=== PATIENT | female | born 1960 | race Caucasian/White ===

== ENCOUNTER → 2018-09-27 | Outpatient (CLI) | payer OTHER ==
--- NOTE | 2018-09-27 12:48 | RAD ---
DATE: 09/27/2018 EXAM: MAMMO ANKUSH SCREENING BILATERAL HISTORY: Routine screening COMPARISON: 04/18/2017 This study was interpreted with the benefit of Computerized Aided Detection (CAD). Breast Density: HETERO The breast parenchyma is heterogenously dense, which could reduce sensitivity of mammography. Breast parenchyma level C. FINDINGS: 2-D and 3-D tomosynthesis imaging was performed in CC and MLO projections. No new or enlarging breast densities are seen. No suspicious microcalcifications are evident. IMPRESSION: Stable mammograms without evidence of malignancy. BI-RADS CATEGORY: 2 BENIGN FINDING(S) RECOMMENDED FOLLOW-UP: 12M 12 MONTH FOLLOW-UP PQRS compliance statement: Patient information was entered into a reminder system with a target due date for the next mammogram. Mammography is a sensitive method for finding small breast cancers, but it does not detect them all and is not a substitute for careful clinical examination. A negative mammogram does not negate a clinically suspicious finding and should not result in delay in biopsying a clinically suspicious abnormality. "Our facility is accredited by the [employer] Mammography [employer]."
== END | disposition home or self-care (01) ==
LOC: MAMMO 09:43
PROVIDERS: ATTEND Obstetrics & Gynecology
DX: Z12.31 Encounter for screening mammogram for malignant neoplasm of breast (principal)
CPT/HCPCS: 77063; 77067

== ENCOUNTER 2019-08-26 00:35 | Emergency (ER) | payer OTHER ==
[~2019-08-26] VITALS: Ht 160 cm; Wt 65.0 kg
[2019-08-26] MEDS ORDERED: AMOX1TAB61 PO (01:02)
[2019-08-26] MEDS ORDERED: HYDR-3164 PO (01:02)
--- NOTE | 2019-08-26 01:02 | PHYS DOC ---
General Adult EDM: Chief Complaint: ANIMAL BITE HPI: HPI: Patient is a 59 year old female who presents after being bitten by her dog last night, about 24 hours ago. Patient states that she had gotten up to go to the bathroom and it was dark and she stepped on the dog's tail. She states that the dog was startled and bit her ankle. Patient states that she is now starting to see some redness to the ankle and she has a lot of pain. She rates the pain an 8 out of 10. She denies any other injuries. [] Review of Systems: Review of Systems: Constitutional: Denies fever or chills. [] Respiratory: Denies cough or shortness of breath. [] Cardiovascular: Denies chest pain or edema. [] Musculoskeletal: Positive left ankle pain. [] Integument: Positive dog bite. [] Heart Score: Risk Factors: Risk Factors: DM, Current or recent (<one month) smoker, HTN, HLP, family history of CAD, obesity. Risk Scores: Score 0 - 3: 2.5% MACE over next 6 weeks - Discharge Home Score 4 - 6: 20.3% MACE over next 6 weeks - Admit for Clinical Observation Score 7 - 10: 72.7% MACE over next 6 weeks - Early Invasive Strategies Physical Exam: PE: Constitutional: Well developed, well nourished, no acute distress, non-toxic appearance. [] Cardiovascular: Regular rate and rhythm [] Lungs & Thorax: Bilateral breath sounds clear to auscultation [] Skin: Warm, dry, no erythema, no rash. [] Extremities: Examination of left ankle demonstrates puncture wound around the Achilles region with soft tissue swelling and erythema with warmth. [] EKG: EKG: [] Radiology/Procedures: Radiology/Procedures: [] Course & Med Decision Making: Course & Med Decision Making Pertinent Labs and Imaging studies reviewed. (See chart for details) [] Dragon Disclaimer: Dragon Disclaimer: This electronic medical record was generated, in whole or in part, using a voice recognition dictation system. Departure Departure Impression: Primary Impression: Dog bite Qualified Codes: W54.0XXA - Bitten by dog, initial encounter Additional Impression: Cellulitis Qualified Codes: L03.116 - Cellulitis of left lower limb Disposition: 01 HOME, SELF-CARE Condition: STABLE Referrals: MARYCHUY VIRGEN MD (PCP) Patient Instructions: Animal Bite, Cellulitis Scripts Hydrocodone/Apap 5-325 (NORCO 5-325 TABLET) 1 Each Tablet 1-2 EACH PO PRN Q6HRS PRN for PAIN, #15 as needed for pain Prov: VICKY BEAN Jr. DO 08/26/19 Amoxicillin/Potassium Clav (AUGMENTIN 875-125 TABLET) 1 Each Tablet 1 TAB PO BID for 10 Days, #20 TAB 0 Refills Prov: VICKY BEAN Jr. DO 08/26/19 VICKY BEAN Jr. DO August 26, 2019 01:02
[2019-08-26 01:15] VITALS: BP 130/62
[2019-08-26] MEDS ORDERED: HYDROcodone/APAP 7.5/325MG 1 TAB TABLET PO ONE (01:30)
[2019-08-26] MEDS ORDERED: AMOXICILLIN/K CLAV 875/125MG TABLET. PO ONE (01:30)
== END 2019-08-26 01:50 | disposition home or self-care (01) ==
LOC: ER 00:35
DX: S91.032A Puncture wound without foreign body, left ankle, initial encounter (principal); L03.116 Cellulitis of left lower limb; W54.0XXA Bitten by dog, initial encounter; Y93.89 Activity, other specified; Y92.89 Other specified places as the place of occurrence of the external cause; Y99.8 Other external cause status
CPT/HCPCS: 99283

== ENCOUNTER → 2020-04-23 | Outpatient (CLI) | payer OTHER ==
[~2020-04-23] MED LIST: AMOX1TAB61 PO; ATOR10TA60 PO; BUPR150T27 PO; CALC-584 PO; DOCU-153 PO; ESCITALOPRAM OX20 MG PO; HYDR-2759 PO; HYDR-3164 PO; LEVO88TA51 PO
--- NOTE | 2020-04-23 11:21 | KCIC ---
EXAM: DUAL ENERGY X-RAY ABSORPTIOMETRY (DEXA). HISTORY: Postmenopausal screening. FINDINGS: The lowest measured T-score is -1.4 in the left hip, based on a bone mineral density of 0.7 69 g/cm^2. Refer to the worksheets for full detail. No comparison examinations are available. IMPRESSION: 1. Low bone mass. Bone mineral density yields a T-score between -1.0 and -2.5. Fracture risk is incre ased. 2. FRAX report: Not available. METHODOLOGY: Dual energy x-ray absorptiometry was performed to measure bone mineral density. The foll owing analysis is based on the 2019 Official Positions of the International Society for Clinical Dens itometry: Measurements of the hips and the average of L1-L4 are preferred. When the spine and/or hip cannot be feasibly measured or interpreted, or in the setting of hyperparathyroidism, distal radial bone minera l density may be measured. The lumbar spine T-score is based on the average bone mineral density of L1-L4. In the setting of art ifact or anatomic abnormality, some lumbar levels may be excluded, and the remaining levels used for calculation. A single lumbar level is not used for diagnosis, and if only a single level is available for assessment, another anatomic site will be used to assign a diagnosis. The hip T-score is based on the bone mineral density measurement of the femoral neck or total proxima l femur of either side, whichever is lowest. Bilateral mean values are not used for diagnosis. The forearm T-score is derived from 33% of the distal radius of the nondominant forearm. Electronically signed by: Bria Kumari MD (04/23/2020 11:19 AM) [id number]
--- NOTE | 2020-04-23 16:01 | KCIC ---
Bilateral digital screening mammograms and tomosynthesis Reason for examination: Routine screening.Family history of breast cancer the patient's mother. Comparison is made to previous study dated September 27, 2018 and priors Routine CC and MLO digital views obtained. Interpretation was made with the benefit of CAD. The skin and nipples show no abnormalities. No abnormal axillary lymph nodes are seen. The breast par enchyma is heterogeneously dense. (Breast density: Category C.) There are no suspicious masses, suspi cious calcifications or architectural distortion. Mild regional glandular asymmetries of the left upp er outer breasts are stable, benign. Impression: Negative mammogram. Recommend routine screening. ?Your patient's mammogram demonstrates that she has dense breast tissue (breast density category C or D), which could hide abnormalities, and if she has other risk factors for breast cancer that have be en identified, she might benefit from supplemental screening tests that may be suggested by you as he r ordering physician. Dense breast tissue, in and of itself, is a relatively common condition. Theref ore, this information is not provided to cause undue concern, but rather to raise your awareness and to promote discussion with your patient regarding the presence of other risk factors, in addition to dense breast tissue. Your patient's mammography results will be sent to her. BI-RAD Category 1: Negative. "Our facility is accredited by the [employer] Mammography Program." This patient's information has been entered into a reminder system for the patient to be notified wit h the results of her examination and a target date for the next mammogram. Electronically signed by: Fernando Hernández MD (04/23/2020 3:58 PM) [id number]
== END ==
LOC: KCIC MAMMO 10:19
PROVIDERS: ATTEND Family Medicine
DX: Z12.31 Encounter for screening mammogram for malignant neoplasm of breast (principal); M85.88 Other specified disorders of bone density and structure, other site
CPT/HCPCS: 77063; 77067; 77080

== ENCOUNTER 2020-06-03 05:51 | Inpatient (IN) | payer OTHER ==
[~2020-06-03] VITALS: Ht 160 cm; Wt 69.4 kg
[~2020-06-03 05:51] MED LIST changes: -ATOR10TA60 PO; -BUPR150T27 PO; -CALC-584 PO; -DOCU-153 PO; -ESCITALOPRAM OX20 MG PO; -HYDR-2759 PO; -LEVO88TA51 PO
[2020-06-03 06:43] LABS: BASO # 0.1 x10^3/uL (0.0-0.2); BASO % 1 % (0-3); EOS # 0.1 x10^3/uL (0.0-0.7); EOS % 1 % (0-3); HEMATOCRIT 41.1 % (36.0-47.0); HEMOGLOBIN 13.6 g/dL (12.0-15.5); LYMPH # 1.8 x10^3/uL (1.0-4.8); LYMPH % 16 % (24-48); MEAN CORPUSCULAR HEMOGLOBIN 30 pg (25-35); MEAN CORPUSCULAR HGB CONC 33 g/dL (31-37); MEAN CORPUSCULAR VOLUME 91 fL (79-100); MONO # 0.6 x10^3/uL (0.0-1.1); MONO % 6 % (0-9); NEUT # 8.1 x10^3/uL (1.8-7.7); NEUT % 76 % (31-73); PLATELET COUNT 222 x10^3/uL (140-400); RED BLOOD COUNT 4.54 x10^6/uL (3.50-5.40); RED CELL DISTRIBUTION WIDTH 13.2 % (11.5-14.5); WHITE BLOOD COUNT 10.7 x10^3/uL (4.0-11.0)
--- NOTE | 2020-06-03 06:43 | PHYS DOC ---
Past Medical History Past Medical History: Depression, High Cholesterol, Hypothyroid Past Surgical History: Other Additional Past Surgical Histo: FOOT INFECTION SURG. PARASYMPATHOCTOMY, RINOPLASTY Smoking Status: Never Smoker Alcohol Use: Occasionally General Adult EDM: Chief Complaint: ABDOMINAL PAIN HPI: HPI: Patient is a 60 year old female who presented to ER due to epigastric abdominal pain, right upper quad abdominal pain started several hours ago. Patient denies any cough or fever, no chest pain, no trouble breathing. Patient denies any diarrhea, no vomiting. Patient denies history of acid reflux, denies a history of gallbladder problem. Patient denies history of pancreatitis. Review of Systems: Review of Systems: Constitutional: Denies fever or chills. [] Eyes: Denies change in visual acuity. [] HENT: Denies nasal congestion or sore throat. [] Respiratory: Denies cough or shortness of breath. [] Cardiovascular: Denies chest pain or edema. [] GI: Positive for abdominal pain, no nausea vomiting, no diarrhea. : Denies dysuria. [] Musculoskeletal: Denies back pain or joint pain. [] Integument: Denies rash. [] Neurologic: Denies headache, focal weakness or sensory changes. [] Endocrine: Denies polyuria or polydipsia. [] Lymphatic: Denies swollen glands. [] Psychiatric: Denies depression or anxiety. [] Heart Score: Risk Factors: Risk Factors: DM, Current or recent (<one month) smoker, HTN, HLP, family history of CAD, obesity. Risk Scores: Score 0 - 3: 2.5% MACE over next 6 weeks - Discharge Home Score 4 - 6: 20.3% MACE over next 6 weeks - Admit for Clinical Observation Score 7 - 10: 72.7% MACE over next 6 weeks - Early Invasive Strategies Current Medications: Current Medications Medications (Trade) Dose Ordered Sig/Dalila Start Time Stop Time Status Last Admin Dose Admin Famotidine (Pepcid Vial) 20 mg 1X ONCE 06/03/20 07:00 06/03/20 07:01 Ondansetron HCl (Zofran) 4 mg 1X ONCE 06/03/20 07:00 06/03/20 07:01 Allergies: Allergies: Allergies Coded Allergies Type Severity Reaction Last Updated Verified No Known Drug Allergies 08/26/19 No Physical Exam: PE: Constitutional: Well developed, well nourished, no acute distress, non-toxic appearance. [] HENT: Normocephalic, atraumatic, bilateral external ears normal, oropharynx moist, no oral exudates, nose normal. [] Eyes: PERRLA, EOMI, conjunctiva normal, no discharge. [] Neck: Normal range of motion, no tenderness, supple, no stridor. [] Cardiovascular:Heart rate regular rhythm, no murmur [] Lungs & Thorax: Bilateral breath sounds clear to auscultation [] Abdomen: Bowel sounds normal, soft, There is tenderness to palpation in RUQ and epigastric area, no masses, no pulsatile masses. [] Skin: Warm, dry, no erythema, no rash. [] Back: No tenderness, no CVA tenderness. [] Extremities: No tenderness, no cyanosis, no clubbing, ROM intact, no edema. [] Neurologic: Alert and oriented X 3, normal motor function, normal sensory function, no focal deficits noted. [] Psychologic: Affect normal, judgement normal, mood normal. [] Current Patient Data: Labs: Laboratory Tests Test 06/03/20 06:27 06/03/20 08:28 White Blood Count 10.7 x10^3/uL Red Blood Count 4.54 x10^6/uL Hemoglobin 13.6 g/dL Hematocrit 41.1 % Mean Corpuscular Volume 91 fL Mean Corpuscular Hemoglobin 30 pg Mean Corpuscular Hemoglobin Concent 33 g/dL Red Cell Distribution Width 13.2 % Platelet Count 222 x10^3/uL Neutrophils (%) (Auto) 76 % Lymphocytes (%) (Auto) 16 % Monocytes (%) (Auto) 6 % Eosinophils (%) (Auto) 1 % Basophils (%) (Auto) 1 % Neutrophils # (Auto) 8.1 x10^3/uL Lymphocytes # (Auto) 1.8 x10^3/uL Monocytes # (Auto) 0.6 x10^3/uL Eosinophils # (Auto) 0.1 x10^3/uL Basophils # (Auto) 0.1 x10^3/uL Sodium Level 142 mmol/L Potassium Level 3.9 mmol/L Chloride Level 103 mmol/L Carbon Dioxide Level 28 mmol/L Anion Gap 11 Blood Urea Nitrogen 11 mg/dL Creatinine 1.2 mg/dL Estimated GFR (Cockcroft-Gault) 45.5 BUN/Creatinine Ratio 9 Glucose Level 102 mg/dL Calcium Level 9.3 mg/dL Total Bilirubin 0.5 mg/dL Aspartate Amino Transf (AST/SGOT) 70 U/L Alanine Aminotransferase (ALT/SGPT) 69 U/L Alkaline Phosphatase 107 U/L Troponin I Quantitative < 0.017 ng/mL Total Protein 6.6 g/dL Albumin 3.8 g/dL Albumin/Globulin Ratio 1.4 Lipase 213 U/L SARS-CoV-2 Antigen (Rapid) Negative Current Medications Medications (Trade) Dose Ordered Sig/Dalila Route PRN Reason Start Time Stop Time Status Last Admin Dose Admin Ondansetron HCl (Zofran) 4 mg 1X ONCE IVP 06/03/20 07:00 06/03/20 07:01 DC 06/03/20 06:40 Famotidine (Pepcid Vial) 20 mg 1X ONCE IVP 06/03/20 07:00 06/03/20 07:01 DC 06/03/20 06:41 Multi-Ingredient Mouthwash/Gargle (Gi Cocktail) 20 ml 1X ONCE SWSW 06/03/20 07:15 06/03/20 07:16 DC 06/03/20 07:16 Fentanyl Citrate (Fentanyl 2ml Vial) 50 mcg 1X ONCE IVP 06/03/20 08:00 06/03/20 08:01 DC 06/03/20 08:08 Ondansetron HCl (Zofran) 4 mg PRN Q8HRS PRN IV NAUSEA/VOMITING 06/03/20 09:15 06/04/20 09:14 Fentanyl Citrate (Fentanyl 2ml Vial) 50 mcg PRN Q1HR PRN IV PAIN 06/03/20 09:15 06/04/20 09:14 Sodium Chloride 1,000 ml @ 75 mls/hr [id number] IV 06/03/20 09:15 06/04/20 09:14 Piperacillin Sod/ Tazobactam Sod 3.375 gm/Sodium Chloride 50 ml @ 100 mls/hr Q6HRS IV 06/03/20 10:00 Vital Signs: Vital Signs Date Time Temp Pulse Resp B/P (MAP) Pulse Ox O2 Delivery O2 Flow Rate FiO2 06/03/20 06:12 98.4 107 20 162/74 (103) 97 Room Air 98.4 EKG: EKG: [] Radiology/Procedures: Radiology/Procedures: [facility] [address] [place] [address] IMAGING REPORT Signed PATIENT: MCKAYLA DE DIOS ACCOUNT: [id number] : 1960 LOCATION: ER AGE: 60 SEX: F EXAM STATUS: REG ER ORD. PHYSICIAN: LASHONDA PINA DO REASON: RUQ abdominal pain PROCEDURE: ABDOMEN LTD US ABDOMEN LTD INDICATION: RUQ abdominal pain COMPARISON: None. TECHNIQUE: Limited transverse and longitudinal grayscale images of the right upper quadrant with color and pulsed doppler utilized as appropriate. FINDINGS: The liver demonstrates normal echogenicity without focal lesions. The liver measures 15.2 cm. The portal vein is patent with normal antegrade flow. Cholelithiasis. Gallbladder wall thickening measuring up to 6 mm. No intrahepatic or extrahepatic biliary dilatation. The common bile duct measures 0.5 cm. The visualized portions of the pancreas demonstrate normal echogenicity without focal lesions. The right kidney has normal echogenicity and measures 9.9 cm. No hydronephrosis, shadowing stones or suspicious masses seen. No ascites or fluid collections. The aorta and IVC are normal diameter where visualized. IMPRESSION: Cholelithiasis with gallbladder wall thickening, which could relate to acute or chronic cholecystitis. Correlate with laboratory values. Electronically signed by: Connor Arellano MD (06/03/2020 7:41 AM) [id number] DICTATED and SIGNED BY: CONNOR ARELLANO MD DATE: 06/03/20 [id number] 0 Course & Med Decision Making: Course & Med Decision Making Pertinent Labs and Imaging studies reviewed. (See chart for details) Patient is a 60-year-old female who was found. Gallstone, gallbladder wall thickening consistent with cholecystitis, discussed with the general surgeon on- call Dr. Kellogg, who indicated he will see the patient today to see when they will operate on her. Discussed with Dr. Boyer, hospitalist service who agreed to admit the patient Dragnigel Disclaimer: Dragon Disclaimer: This electronic medical record was generated, in whole or in part, using a voice recognition dictation system. Departure Departure Impression: Primary Impression: Acute cholecystitis due to biliary calculus Disposition: 09 ADMITTED INPT THIS HOSP Admitting Physician: DIEGO (Dr. Boyer) Referrals: MARYCHUY VIRGEN MD (PCP) LASHONDA PINA DO Jun 03, 2020 06:43
[2020-06-03] MEDS ORDERED: FAMOTIDINE 20 MG/2 ML VIAL IVP ONE (07:00)
[2020-06-03] MEDS ORDERED: ONDANSETRON PF 4 MG/2 ML VIAL. IVP ONE (07:00)
[2020-06-03 07:03] LABS: ALBUMIN 3.8 g/dL (3.4-5.0); ALBUMIN/GLOBULIN RATIO 1.4 (1.0-1.7); CALCIUM 9.3 mg/dL (8.5-10.1); CREATININE 1.2 mg/dL (0.6-1.0); GFR 45.5; POTASSIUM 3.9 mmol/L (3.5-5.1); TOTAL BILIRUBIN 0.5 mg/dL (0.2-1.0); TOTAL PROTEIN 6.6 g/dL (6.4-8.2)
[2020-06-03] MEDS ORDERED: LIDO:MAALOX 1:1 20 ML SINGLE DOSE. SWSW ONE (07:15)
--- NOTE | 2020-06-03 07:44 | RAD ---
US ABDOMEN LTD INDICATION: RUQ abdominal pain COMPARISON: None. TECHNIQUE: Limited transverse and longitudinal grayscale images of the right upper quadrant with colo r and pulsed doppler utilized as appropriate. FINDINGS: The liver demonstrates normal echogenicity without focal lesions. The liver measures 15.2 cm. The por martienz vein is patent with normal antegrade flow. Cholelithiasis. Gallbladder wall thickening measuring up to 6 mm. No intrahepatic or extrahepatic robel iary dilatation. The common bile duct measures 0.5 cm. The visualized portions of the pancreas demonstrate normal echogenicity without focal lesions. The right kidney has normal echogenicity and measures 9.9 cm. No hydronephrosis, shadowing stones or suspicious masses seen. No ascites or fluid collections. The aorta and IVC are normal diameter where visualized. IMPRESSION: Cholelithiasis with gallbladder wall thickening, which could relate to acute or chronic cholecystitis . Correlate with laboratory values. Electronically signed by: Srini Arellano MD (06/03/2020 7:41 AM) [id number]
[2020-06-03] MEDS ORDERED: fentaNYL PF VIAL 100 MCG/2 ML VIAL IVP ONE (08:00)
--- NOTE | 2020-06-03 08:59 | EKG ---
[facility] [address] [place] [address] Test Date: 2020-06-03 Test Time: 06:48:58 Pat Name: MCKAYLA DE DIOS Department: Room: Gender: F Guest Service Supervisor: : 1960 Requested By: LASHONDA PINA Order Number: [id number] Reading MD: Measurements Intervals [place] Rate: 63 P: 51 MN: 142 QRS: 45 QRSD: 86 T: 33 QT: 436 QTc: 449 Interpretive Statements SINUS RHYTHM NO SPECIFIC ECG ABNORMALITIES RI6.02 No previous ECG available for comparison
[2020-06-03] MEDS ORDERED: ONDANSETRON PF 4 MG/2 ML VIAL. IV PRN (09:15)
[2020-06-03] MEDS ORDERED: fentaNYL PF VIAL 100 MCG/2 ML VIAL IV PRN (09:15)
[2020-06-03] MEDS: PIPERACILLIN/TAZOBACTAM 3.375 GM in IV NORMAL SALINE 50ML 50 ML IV SCH ×2 (10:00→17:14)
[2020-06-03] MEDS: IV NORMAL SALINE 1000ML BAG 1,000 ML IV SCH (10:01)
[2020-06-03] MEDS ORDERED: IOHEXOL 300 MG/ML 100ML VIAL. IV ONE (10:30)
[2020-06-03] MEDS ORDERED: IOHEXOL 240 MG/ML 50ML VIAL. PO ONE (10:30)
[2020-06-03] MEDS ORDERED: CONTRAST GIVEN. MC PRN (10:30)
--- NOTE | 2020-06-03 11:48 | RAD ---
EXAM: CT Abdomen and Pelvis with IV contrast CLINICAL HISTORY: Abdominal pain, right upper quadrant COMPARISON: none TECHNIQUE: Helical CT of the abdomen and pelvis was performed following the administration of intrave nous contrast. Axial, coronal and sagittal reformatted images were generated. PQRS compliance statement - One or more of the following individualized dose reduction techniques wer e utilized for this study: 1. Automated exposure control 2. Adjustment of the mA and/or kV according to patient size 3. Use of iterative reconstruction technique FINDINGS: Lower Chest: Emphysematous changes are seen. Linear opacities are lobes likely scarring/atelectasis. Abdomen and Pelvis: No focal liver lesion. Called gallstones are seen within the gallbladder with wall thickening and tra ce pericholecystic fluid. No biliary ductal dilatation. Pancreas, spleen, adrenal glands are unremark able. Symmetric nephrograms. No focal renal lesion. No hydronephrosis. Bladder is unremarkable. Appendix is normal. Moderate to large volume colonic stool content is seen. No small or large bowel d ilatation. No bowel obstruction. No abdominal or pelvic ascites. No abdominal or pelvic lymphadenopathy. Trace fat-containing periumbi lical hernia. Bones: No aggressive osseous lesion is seen. Degenerative changes of spine are noted. IMPRESSION: 1. Cholelithiasis with gallbladder wall thickening and trace pericholecystic fluid is suspicious for acute cholecystitis. 2. Moderate to large right colonic stool content is seen. Appendix is normal. 3. Trace fat-containing periumbilical hernia. Electronically signed by: Adonay Couch MD (06/03/2020 11:46 AM) [id number]
[2020-06-03 12:23] VITALS: BP 122/53
[2020-06-03 12:26] LABS: BILIRUBIN,URINE NEGATIVE (NEG); CLARITY,URINE CLEAR; COLOR,URINE YELLOW; NITRITE,URINE NEGATIVE (NEG); PH,URINE 6.5 (<5.0-8.0); PROTEIN,URINE NEGATIVE (NEG-TRACE)
[2020-06-03 12:59] LABS: BACTERIA,URINE 0 /HPF (0-FEW); HYALINE CASTS, URINE OCCASIONAL /HPF; WBC,URINE OCC /HPF (0-4)
[2020-06-03 15:00] VITALS: BP 113/56
[2020-06-03] MEDS ORDERED: MORPHINE SULFATE 4 MG/ML VIAL. IV PRN (15:00)
[2020-06-03] MEDS ORDERED: MAGNESIUM CITRATE 296 ML SOLUTION. PO ONE (17:00)
--- NOTE | 2020-06-03 17:07 | PDOC2 ---
CONSULT Date of Consult Date of Consult DATE: 06/03/20 TIME: 17:02 Reason for Consult Reason for Consult: Calculous cholecystitis Referring Physician Referring Physician: Dr. Boyer Identification/Chief Complaint Chief Complaint RUQ pain Source Source: Chart review, Patient History of Present Illness Reason for Visit: 60 yo F was seen in ER. Presents with several hour history of RUQ pain. No previous episodes. No N/V. Pt does report feeling better with pain meds. Past Medical History Past Medical History hx of hyperhydrosis, s/p sympathectomy Cardiovascular: HTN Psych: Depression Past Surgical History Past Surgical History: Other (as above, foot surgery, nasal surgery) Family History Family History: No Significant Social History No Current Problem List Problem List Problems Medical Problems: (1) Acute cholecystitis due to biliary calculus Status: Acute Current Medications Current Medications Current Medications Ondansetron HCl (Zofran) 4 mg 1X ONCE IVP Last administered on 06/03/20at 06:40; Start 06/03/20 at 07:00; Stop 06/03/20 at 07:01; Status DC Famotidine (Pepcid Vial) 20 mg 1X ONCE IVP Last administered on 06/03/20at 06:41; Start 06/03/20 at 07:00; Stop 06/03/20 at 07:01; Status DC Multi-Ingredient Mouthwash/Gargle (Gi Cocktail) 20 ml 1X ONCE SWSW Last administered on 06/03/20at 07:16; Start 06/03/20 at 07:15; Stop 06/03/20 at 07:16; Status DC Fentanyl Citrate (Fentanyl 2ml Vial) 50 mcg 1X ONCE IVP Last administered on 06/03/20at 08:08; Start 06/03/20 at 08:00; Stop 06/03/20 at 08:01; Status DC Ondansetron HCl (Zofran) 4 mg PRN Q8HRS PRN IV NAUSEA/VOMITING; Start 06/03/20 at 09:15; Stop 06/04/20 at 09:14 Fentanyl Citrate (Fentanyl 2ml Vial) 50 mcg PRN Q1HR PRN IV PAIN Last administered on 06/03/20at 09:56; Start 06/03/20 at 09:15; Stop 06/04/20 at 09:14 Sodium Chloride 1,000 ml @ 75 mls/hr [id number] IV Last administered on 06/03/20at 10:01; Start 06/03/20 at 09:15; Stop 06/04/20 at 09:14 Piperacillin Sod/ Tazobactam Sod 3.375 gm/Sodium Chloride 50 ml @ 100 mls/hr Q6HRS IV Last administered on 06/03/20at 10:00; Start 06/03/20 at 10:00 Iohexol (Omnipaque 240 Mg/ml) 50 ml 1X ONCE PO Last administered on 06/03/20at 10:30; Start 06/03/20 at 10:30; Stop 06/03/20 at 10:31; Status DC Iohexol (Omnipaque 300 Mg/ml) 60 ml 1X ONCE IV Last administered on 06/03/20at 11:22; Start 06/03/20 at 10:30; Stop 06/03/20 at 10:31; Status DC Info (CONTRAST GIVEN -- Rx MONITORING) 1 each PRN DAILY PRN MC SEE COMMENTS; Start 06/03/20 at 10:30; Stop 06/05/20 at 10:29 Morphine Sulfate (Morphine Sulfate) 4 mg PRN Q2HR PRN IV PAIN; Start 06/03/20 at 15:00 Active Scripts Active [place] 5-325 Tablet (Acetaminophen/Hydrocodone Bitart) 1 Each Tablet 1-2 Each PO PRN Q6HRS PRN as needed for pain Augmentin 875-125 Tablet (Amoxicillin/Potassium Clav) 1 Each Tablet 1 Tab PO BID 10 Days Allergies Allergies: Coded Allergies: No Known Drug Allergies (Unverified , 08/26/19) ROS Gastrointestinal: Yes Abdominal Pain Physical Exam General: Alert, Oriented X3, Cooperative, No acute distress HEENT: Atraumatic Lungs: Normal air movement Abdomen: Soft, Other (mild TTP RUQ) Extremities: No clubbing, No cyanosis Skin: No rashes, No breakdown Neuro: Normal speech, Sensation intact Psych/Mental Status: Mental status NL, Mood NL Vitals VITALS Vital Signs Date Time Temp Pulse Resp B/P (MAP) Pulse Ox O2 Delivery O2 Flow Rate FiO2 06/03/20 15:00 97.9 77 18 113/56 (75) 99 Room Air 97.9 Labs Labs Laboratory Tests Test 06/03/20 06:27 06/03/20 08:28 06/03/20 12:07 White Blood Count 10.7 x10^3/uL (4.0-11.0) Red Blood Count 4.54 x10^6/uL (3.50-5.40) Hemoglobin 13.6 g/dL (12.0-15.5) Hematocrit 41.1 % (36.0-47.0) Mean Corpuscular Volume 91 fL (79-100) Mean Corpuscular Hemoglobin 30 pg (25-35) Mean Corpuscular Hemoglobin Concent 33 g/dL (31-37) Red Cell Distribution Width 13.2 % (11.5-14.5) Platelet Count 222 x10^3/uL (140-400) Neutrophils (%) (Auto) 76 % (31-73) Lymphocytes (%) (Auto) 16 % (24-48) Monocytes (%) (Auto) 6 % (0-9) Eosinophils (%) (Auto) 1 % (0-3) Basophils (%) (Auto) 1 % (0-3) Neutrophils # (Auto) 8.1 x10^3/uL (1.8-7.7) Lymphocytes # (Auto) 1.8 x10^3/uL (1.0-4.8) Monocytes # (Auto) 0.6 x10^3/uL (0.0-1.1) Eosinophils # (Auto) 0.1 x10^3/uL (0.0-0.7) Basophils # (Auto) 0.1 x10^3/uL (0.0-0.2) Sodium Level 142 mmol/L (136-145) Potassium Level 3.9 mmol/L (3.5-5.1) Chloride Level 103 mmol/L (98-107) Carbon Dioxide Level 28 mmol/L (21-32) Anion Gap 11 (6-14) Blood Urea Nitrogen 11 mg/dL (7-20) Creatinine 1.2 mg/dL (0.6-1.0) Estimated GFR (Cockcroft-Gault) 45.5 BUN/Creatinine Ratio 9 (6-20) Glucose Level 102 mg/dL (70-99) Calcium Level 9.3 mg/dL (8.5-10.1) Total Bilirubin 0.5 mg/dL (0.2-1.0) Aspartate Amino Transf (AST/SGOT) 70 U/L (15-37) Alanine Aminotransferase (ALT/SGPT) 69 U/L (14-59) Alkaline Phosphatase 107 U/L (46-116) Troponin I Quantitative < 0.017 ng/mL (0.000-0.055) Total Protein 6.6 g/dL (6.4-8.2) Albumin 3.8 g/dL (3.4-5.0) Albumin/Globulin Ratio 1.4 (1.0-1.7) Lipase 213 U/L (73-393) SARS-CoV-2 Antigen (Rapid) Negative (NEGATIVE) Urine Collection Type Unknown Urine Color Yellow Urine Clarity Clear Urine pH 6.5 (<5.0-8.0) Urine Specific [place] >=1.030 (1.000-1.030) Urine Protein Negative mg/dL (NEG-TRACE) Urine Glucose (UA) Negative mg/dL (NEG) Urine Ketones (Stick) Negative mg/dL (NEG) Urine Blood Negative (NEG) Urine Nitrite Negative (NEG) Urine Bilirubin Negative (NEG) Urine Urobilinogen Dipstick 1.0 mg/dL (0.2 mg/dL) Urine Leukocyte Esterase Negative (NEG) Urine RBC 1-2 /HPF (0-2) Urine WBC Occ /HPF (0-4) Urine Squamous Epithelial Cells Few /LPF Urine Bacteria 0 /HPF (0-FEW) Urine Hyaline Casts Occasional /HPF Urine Mucus Mod /LPF Laboratory Tests Test 06/03/20 06:27 06/03/20 08:28 06/03/20 12:07 White Blood Count 10.7 x10^3/uL (4.0-11.0) Red Blood Count 4.54 x10^6/uL (3.50-5.40) Hemoglobin 13.6 g/dL (12.0-15.5) Hematocrit 41.1 % (36.0-47.0) Mean Corpuscular Volume 91 fL (79-100) Mean Corpuscular Hemoglobin 30 pg (25-35) Mean Corpuscular Hemoglobin Concent 33 g/dL (31-37) Red Cell Distribution Width 13.2 % (11.5-14.5) Platelet Count 222 x10^3/uL (140-400) Neutrophils (%) (Auto) 76 % (31-73) Lymphocytes (%) (Auto) 16 % (24-48) Monocytes (%) (Auto) 6 % (0-9) Eosinophils (%) (Auto) 1 % (0-3) Basophils (%) (Auto) 1 % (0-3) Neutrophils # (Auto) 8.1 x10^3/uL (1.8-7.7) Lymphocytes # (Auto) 1.8 x10^3/uL (1.0-4.8) Monocytes # (Auto) 0.6 x10^3/uL (0.0-1.1) Eosinophils # (Auto) 0.1 x10^3/uL (0.0-0.7) Basophils # (Auto) 0.1 x10^3/uL (0.0-0.2) Sodium Level 142 mmol/L (136-145) Potassium Level 3.9 mmol/L (3.5-5.1) Chloride Level 103 mmol/L (98-107) Carbon Dioxide Level 28 mmol/L (21-32) Anion Gap 11 (6-14) Blood Urea Nitrogen 11 mg/dL (7-20) Creatinine 1.2 mg/dL (0.6-1.0) Estimated GFR (Cockcroft-Gault) 45.5 BUN/Creatinine Ratio 9 (6-20) Glucose Level 102 mg/dL (70-99) Calcium Level 9.3 mg/dL (8.5-10.1) Total Bilirubin 0.5 mg/dL (0.2-1.0) Aspartate Amino Transf (AST/SGOT) 70 U/L (15-37) Alanine Aminotransferase (ALT/SGPT) 69 U/L (14-59) Alkaline Phosphatase 107 U/L (46-116) Troponin I Quantitative < 0.017 ng/mL (0.000-0.055) Total Protein 6.6 g/dL (6.4-8.2) Albumin 3.8 g/dL (3.4-5.0) Albumin/Globulin Ratio 1.4 (1.0-1.7) Lipase 213 U/L (73-393) SARS-CoV-2 Antigen (Rapid) Negative (NEGATIVE) Urine Collection Type Unknown Urine Color Yellow Urine Clarity Clear Urine pH 6.5 (<5.0-8.0) Urine Specific [place] >=1.030 (1.000-1.030) Urine Protein Negative mg/dL (NEG-TRACE) Urine Glucose (UA) Negative mg/dL (NEG) Urine Ketones (Stick) Negative mg/dL (NEG) Urine Blood Negative (NEG) Urine Nitrite Negative (NEG) Urine Bilirubin Negative (NEG) Urine Urobilinogen Dipstick 1.0 mg/dL (0.2 mg/dL) Urine Leukocyte Esterase Negative (NEG) Urine RBC 1-2 /HPF (0-2) Urine WBC Occ /HPF (0-4) Urine Squamous Epithelial Cells Few /LPF Urine Bacteria 0 /HPF (0-FEW) Urine Hyaline Casts Occasional /HPF Urine Mucus Mod /LPF Images Images CT with some right sided constipation US with calculous cholecystitis Assessment/Plan Assessment/Plan Calculous cholecystitis will gently prep today, given constipation will plan laparoscopic versus open cholecystectomy with cholangiogram tomorrow afternoon. R/R/B/A d/w pt. Thanks for consult! ELIZABETH JUSTIN MD Jun 03, 2020 17:07
--- NOTE | 2020-06-03 17:18 | PDOC1 ---
History and Physical Date of Admission Date of Admission DATE: 06/03/20 TIME: 17:14 Source Source: Chart review, Patient History of Present Illness History of Present Illness Ms. Barton, is a 60 year old female admti with new abdominal pain. TOday, she had an onset of epigastric abdominal pain, right upper quad abdominal pain for hours. better with pain meds given in the ER. . Patient denies any cough or fever, no chest pain, no trouble breathing. Patient denies any diarrhea, no vomiting. Patient denies history of acid reflux, denies a history of gallbladder problem. her daughter is a hospitalist in the [facility], Past Medical History Cardiovascular: HTN Psych: Depression Past Surgical History Past Surgical History: Other (as above, foot surgery, nasal surgery) Family History Family History: No Significant Social History Smoke: No ALCOHOL: occassional Current Problem List Problem List Problems Medical Problems: (1) Acute cholecystitis due to biliary calculus Status: Acute Current Medications Current Medications Current Medications Ondansetron HCl (Zofran) 4 mg 1X ONCE IVP Last administered on 06/03/20at 06:40; Start 06/03/20 at 07:00; Stop 06/03/20 at 07:01; Status DC Famotidine (Pepcid Vial) 20 mg 1X ONCE IVP Last administered on 06/03/20at 06:41; Start 06/03/20 at 07:00; Stop 06/03/20 at 07:01; Status DC Multi-Ingredient Mouthwash/Gargle (Gi Cocktail) 20 ml 1X ONCE SWSW Last administered on 06/03/20at 07:16; Start 06/03/20 at 07:15; Stop 06/03/20 at 07:16; Status DC Fentanyl Citrate (Fentanyl 2ml Vial) 50 mcg 1X ONCE IVP Last administered on 06/03/20at 08:08; Start 06/03/20 at 08:00; Stop 06/03/20 at 08:01; Status DC Ondansetron HCl (Zofran) 4 mg PRN Q8HRS PRN IV NAUSEA/VOMITING; Start 06/03/20 at 09:15; Stop 06/04/20 at 09:14 Fentanyl Citrate (Fentanyl 2ml Vial) 50 mcg PRN Q1HR PRN IV PAIN Last administered on 06/03/20at 09:56; Start 06/03/20 at 09:15; Stop 06/04/20 at 09:14 Sodium Chloride 1,000 ml @ 75 mls/hr [id number] IV Last administered on 06/03/20at 10:01; Start 06/03/20 at 09:15; Stop 06/04/20 at 09:14 Piperacillin Sod/ Tazobactam Sod 3.375 gm/Sodium Chloride 50 ml @ 100 mls/hr Q6HRS IV Last administered on 06/03/20at 10:00; Start 06/03/20 at 10:00 Iohexol (Omnipaque 240 Mg/ml) 50 ml 1X ONCE PO Last administered on 06/03/20at 10:30; Start 06/03/20 at 10:30; Stop 06/03/20 at 10:31; Status DC Iohexol (Omnipaque 300 Mg/ml) 60 ml 1X ONCE IV Last administered on 06/03/20at 11:22; Start 06/03/20 at 10:30; Stop 06/03/20 at 10:31; Status DC Info (CONTRAST GIVEN -- Rx MONITORING) 1 each PRN DAILY PRN MC SEE COMMENTS; Start 06/03/20 at 10:30; Stop 06/05/20 at 10:29 Morphine Sulfate (Morphine Sulfate) 4 mg PRN Q2HR PRN IV PAIN; Start 06/03/20 at 15:00 Magnesium Citrate (Citroma) 296 ml 1X ONCE PO ; Start 06/03/20 at 17:00; Stop 06/03/20 at 17:04; Status DC Active Scripts Active [place] 5-325 Tablet (Acetaminophen/Hydrocodone Bitart) 1 Each Tablet 1-2 Each PO PRN Q6HRS PRN as needed for pain Augmentin 875-125 Tablet (Amoxicillin/Potassium Clav) 1 Each Tablet 1 Tab PO BID 10 Days Allergies Allergies: Coded Allergies: No Known Drug Allergies (Unverified , 08/26/19) ROS General: No: Chills, Night Sweats, Fatigue, Malaise, Appetite, Other PSYCHOLOGICAL ROS: No: Anxiety, Behavioral Disorder, Concentration difficultie, Decreased libido, Depression, Disorientation, Hallucinations, Hostility, Irrit ablity, Memory difficulties, Mood Swings, Obsessive thoughts, Physical abuse, Sexual abuse, Sleep disturbances, Suicidal ideation, Other Eyes: No Blurry vision, No Decreased vision, No Double vision, No Dry eyes, No Excessive tearing, No Eye Pain, No Itchy Eyes, No Loss of vision, No Photophobia, No Scotomata, No Uses contacts, No Uses glasses, No Other HEENT: No: Heacaches, Visual Changes, Hearing change, Nasal congestion, Nasal discharge, Oral lesions, Sinus pain, Sore Throat, Epistaxis, Sneezing, Snoring, Tinnitus, Vertigo, Vocal changes, Other Respiratory: No: Cough, Hemoptysis, Orthopnea, Pleuritic Pain, Shortness of breath, SOB with excertion, Sputum Changes, Stridor, Tachypnea, Wheezing, Other Cardiovascular: No Chest Pain, No Palpitations, No Orthopnea, No Paroxysmal Noc. Dyspnea, No Edema, No Lt Headedness, No Other Gastrointestinal: Yes Nausea, Yes Abdominal Pain Genitourinary: No Dysuria, No Frequency, No Incontinence, No Hematuria, No Retention, No Discharge, No Urgency, No Pain, No Flank Pain, No Other, No , No , No , No , No , No , No Musculoskeletal: No Gait Disturbance, No Joint Pain, No Joint Stiffness, No Joint Swelling, No Muscle Pain, No Muscular Weakness, No Pain In:, No Swelling In:, No Other Neurological: No Behavorial Changes, No Bowel/Bladder ControlChng, No Confusion, No Dizziness, No Gait Disturbance, No Headaches, No Impaired Coord/balance, No Memory Loss, No Numbness/Tingling, No Seizures, No Speech Problems, No Tremors, No Visual Changes, No Weakness, No Other Skin: No Dry Skin, No Eczema, No Hair Changes, No Lumps, No Mole Changes, No Mottling, No Nail Changes, No Pruritus, No Rash, No Skin Lesion Changes, No Other, No Acne Physical Exam General: Alert, Oriented X3, Cooperative HEENT: Atraumatic, PERRLA Lungs: Clear to auscultation Heart: S1S2, RRR Abdomen: Normal bowel sounds, Soft Extremities: No cyanosis, No edema, Normal pulses Skin: No rashes, No significant lesion Neuro: Normal tone, Cranial nerves 3-12 NL Psych/Mental Status: Mental status NL, Mood NL Vitals Vitals Vital Signs Date Time Temp Pulse Resp B/P (MAP) Pulse Ox O2 Delivery O2 Flow Rate FiO2 06/03/20 15:00 97.9 77 18 113/56 (75) 99 Room Air 97.9 Labs Labs Laboratory Tests Test 06/03/20 06:27 06/03/20 08:28 06/03/20 12:07 White Blood Count 10.7 x10^3/uL (4.0-11.0) Red Blood Count 4.54 x10^6/uL (3.50-5.40) Hemoglobin 13.6 g/dL (12.0-15.5) Hematocrit 41.1 % (36.0-47.0) Mean Corpuscular Volume 91 fL (79-100) Mean Corpuscular Hemoglobin 30 pg (25-35) Mean Corpuscular Hemoglobin Concent 33 g/dL (31-37) Red Cell Distribution Width 13.2 % (11.5-14.5) Platelet Count 222 x10^3/uL (140-400) Neutrophils (%) (Auto) 76 % (31-73) Lymphocytes (%) (Auto) 16 % (24-48) Monocytes (%) (Auto) 6 % (0-9) Eosinophils (%) (Auto) 1 % (0-3) Basophils (%) (Auto) 1 % (0-3) Neutrophils # (Auto) 8.1 x10^3/uL (1.8-7.7) Lymphocytes # (Auto) 1.8 x10^3/uL (1.0-4.8) Monocytes # (Auto) 0.6 x10^3/uL (0.0-1.1) Eosinophils # (Auto) 0.1 x10^3/uL (0.0-0.7) Basophils # (Auto) 0.1 x10^3/uL (0.0-0.2) Sodium Level 142 mmol/L (136-145) Potassium Level 3.9 mmol/L (3.5-5.1) Chloride Level 103 mmol/L (98-107) Carbon Dioxide Level 28 mmol/L (21-32) Anion Gap 11 (6-14) Blood Urea Nitrogen 11 mg/dL (7-20) Creatinine 1.2 mg/dL (0.6-1.0) Estimated GFR (Cockcroft-Gault) 45.5 BUN/Creatinine Ratio 9 (6-20) Glucose Level 102 mg/dL (70-99) Calcium Level 9.3 mg/dL (8.5-10.1) Total Bilirubin 0.5 mg/dL (0.2-1.0) Aspartate Amino Transf (AST/SGOT) 70 U/L (15-37) Alanine Aminotransferase (ALT/SGPT) 69 U/L (14-59) Alkaline Phosphatase 107 U/L (46-116) Troponin I Quantitative < 0.017 ng/mL (0.000-0.055) Total Protein 6.6 g/dL (6.4-8.2) Albumin 3.8 g/dL (3.4-5.0) Albumin/Globulin Ratio 1.4 (1.0-1.7) Lipase 213 U/L (73-393) SARS-CoV-2 Antigen (Rapid) Negative (NEGATIVE) Urine Collection Type Unknown Urine Color Yellow Urine Clarity Clear Urine pH 6.5 (<5.0-8.0) Urine Specific [place] >=1.030 (1.000-1.030) Urine Protein Negative mg/dL (NEG-TRACE) Urine Glucose (UA) Negative mg/dL (NEG) Urine Ketones (Stick) Negative mg/dL (NEG) Urine Blood Negative (NEG) Urine Nitrite Negative (NEG) Urine Bilirubin Negative (NEG) Urine Urobilinogen Dipstick 1.0 mg/dL (0.2 mg/dL) Urine Leukocyte Esterase Negative (NEG) Urine RBC 1-2 /HPF (0-2) Urine WBC Occ /HPF (0-4) Urine Squamous Epithelial Cells Few /LPF Urine Bacteria 0 /HPF (0-FEW) Urine Hyaline Casts Occasional /HPF Urine Mucus Mod /LPF Laboratory Tests Test 06/03/20 06:27 06/03/20 08:28 06/03/20 12:07 White Blood Count 10.7 x10^3/uL (4.0-11.0) Red Blood Count 4.54 x10^6/uL (3.50-5.40) Hemoglobin 13.6 g/dL (12.0-15.5) Hematocrit 41.1 % (36.0-47.0) Mean Corpuscular Volume 91 fL (79-100) Mean Corpuscular Hemoglobin 30 pg (25-35) Mean Corpuscular Hemoglobin Concent 33 g/dL (31-37) Red Cell Distribution Width 13.2 % (11.5-14.5) Platelet Count 222 x10^3/uL (140-400) Neutrophils (%) (Auto) 76 % (31-73) Lymphocytes (%) (Auto) 16 % (24-48) Monocytes (%) (Auto) 6 % (0-9) Eosinophils (%) (Auto) 1 % (0-3) Basophils (%) (Auto) 1 % (0-3) Neutrophils # (Auto) 8.1 x10^3/uL (1.8-7.7) Lymphocytes # (Auto) 1.8 x10^3/uL (1.0-4.8) Monocytes # (Auto) 0.6 x10^3/uL (0.0-1.1) Eosinophils # (Auto) 0.1 x10^3/uL (0.0-0.7) Basophils # (Auto) 0.1 x10^3/uL (0.0-0.2) Sodium Level 142 mmol/L (136-145) Potassium Level 3.9 mmol/L (3.5-5.1) Chloride Level 103 mmol/L (98-107) Carbon Dioxide Level 28 mmol/L (21-32) Anion Gap 11 (6-14) Blood Urea Nitrogen 11 mg/dL (7-20) Creatinine 1.2 mg/dL (0.6-1.0) Estimated GFR (Cockcroft-Gault) 45.5 BUN/Creatinine Ratio 9 (6-20) Glucose Level 102 mg/dL (70-99) Calcium Level 9.3 mg/dL (8.5-10.1) Total Bilirubin 0.5 mg/dL (0.2-1.0) Aspartate Amino Transf (AST/SGOT) 70 U/L (15-37) Alanine Aminotransferase (ALT/SGPT) 69 U/L (14-59) Alkaline Phosphatase 107 U/L (46-116) Troponin I Quantitative < 0.017 ng/mL (0.000-0.055) Total Protein 6.6 g/dL (6.4-8.2) Albumin 3.8 g/dL (3.4-5.0) Albumin/Globulin Ratio 1.4 (1.0-1.7) Lipase 213 U/L (73-393) SARS-CoV-2 Antigen (Rapid) Negative (NEGATIVE) Urine Collection Type Unknown Urine Color Yellow Urine Clarity Clear Urine pH 6.5 (<5.0-8.0) Urine Specific [place] >=1.030 (1.000-1.030) Urine Protein Negative mg/dL (NEG-TRACE) Urine Glucose (UA) Negative mg/dL (NEG) Urine Ketones (Stick) Negative mg/dL (NEG) Urine Blood Negative (NEG) Urine Nitrite Negative (NEG) Urine Bilirubin Negative (NEG) Urine Urobilinogen Dipstick 1.0 mg/dL (0.2 mg/dL) Urine Leukocyte Esterase Negative (NEG) Urine RBC 1-2 /HPF (0-2) Urine WBC Occ /HPF (0-4) Urine Squamous Epithelial Cells Few /LPF Urine Bacteria 0 /HPF (0-FEW) Urine Hyaline Casts Occasional /HPF Urine Mucus Mod /LPF VTE Prophylaxis Ordered VTE Prophylaxis Devices: Yes VTE Pharmacological Prophylaxi: No Assessment/Plan Assessment/Plan acute abd pain acute cholecystitis OK for surg, gen surg following htn, benign, Justifications for Admission Other Justification YADI MAYERS MD Jun 03, 2020 17:18
[2020-06-03] MEDS: POLYETHYLENE GLYCOL 3350 17 GM PACKET. PO SCH (17:30)
[2020-06-03 19:00] VITALS: BP 127/56
[2020-06-03] MEDS ORDERED: ATOR10TA60 PO (19:09)
[2020-06-03] MEDS ORDERED: ESCITALOPRAM OX20 MG PO (19:09)
[2020-06-03] MEDS ORDERED: LEVO88TA51 PO (19:09)
[2020-06-03] MEDS ORDERED: BUPR150T27 PO (19:09)
[2020-06-03] MEDS ORDERED: CALC-584 PO (19:10)
[2020-06-03 23:00] VITALS: BP 110/59
[2020-06-04] VITALS (11 sets, daily range): BP systolic 95–151; BP diastolic 41–63
[2020-06-04] MEDS: IV NORMAL SALINE 1000ML BAG 1,000 ML IV SCH (00:12)
[2020-06-04] MEDS: PIPERACILLIN/TAZOBACTAM 3.375 GM in IV NORMAL SALINE 50ML 50 ML IV SCH ×5 (00:12→23:39)
[2020-06-04] MEDS: POLYETHYLENE GLYCOL 3350 17 GM PACKET. PO SCH (08:03)
[2020-06-04] MEDS ORDERED: POLYETHYLENE GLYCOL 3350 17 GM PACKET. PO SCH (09:00)
--- NOTE | 2020-06-04 10:05 | PDOC ---
[employer] PROGRESS NOTE Date of Service DOS: DATE: 06/04/20 TIME: 10:02 Chief Complaint Chief Complaint A/P: Acute abd pain Acute cholecystitis - no further testing prior to planned surgery, gen surg following. Cont zosyn htn, benign, Constipation - large stool burden noted History of Present Illness History of Present Illness Ms. Barton, is a 60 year old female admit with new abdominal pain, onset of epigastric abdominal pain, right upper quad abdominal pain for hours. Better with pain meds given in the ER. Patient denies any cough or fever, no chest pain, no trouble breathing. Patient denies any diarrhea, no vomiting. Patient denies history of acid reflux, denies a history of gallbladder problem. EKG NSR, trop negative. CT and RUQ US confirm cholecystitis with stones. LFT mildly elevated. COVID 19 negative. General surgery consulted. Afebrile. Pain improved. To OR today for lap osvaldo. Vitals/I&O Vitals/I&O: Vital Signs Date Time Temp Pulse Resp B/P (MAP) Pulse Ox O2 Delivery O2 Flow Rate FiO2 06/04/20 08:00 Room Air 06/04/20 07:00 98.8 71 18 100/51 (67) 96 98.8 I & O 06/03/20 06/03/20 06/04/20 15:00 23:00 07:00 Intake Total 50 ml 50 ml 1100 ml Output Total 700 ml 200 ml Balance 50 ml -650 ml 900 ml Physical Exam General: Alert, Oriented X3, Cooperative Abdomen: Normal bowel sounds, Soft Extremities: No cyanosis, No edema, Normal pulses Skin: No rashes, No significant lesion Labs Labs: Laboratory Tests Test 06/03/20 12:07 Urine Collection Type Unknown Urine Color Yellow Urine Clarity Clear Urine pH 6.5 (<5.0-8.0) Urine Specific [place] >=1.030 (1.000-1.030) Urine Protein Negative mg/dL (NEG-TRACE) Urine Glucose (UA) Negative mg/dL (NEG) Urine Ketones (Stick) Negative mg/dL (NEG) Urine Blood Negative (NEG) Urine Nitrite Negative (NEG) Urine Bilirubin Negative (NEG) Urine Urobilinogen Dipstick 1.0 mg/dL (0.2 mg/dL) Urine Leukocyte Esterase Negative (NEG) Urine RBC 1-2 /HPF (0-2) Urine WBC Occ /HPF (0-4) Urine Squamous Epithelial Cells Few /LPF Urine Bacteria 0 /HPF (0-FEW) Urine Hyaline Casts Occasional /HPF Urine Mucus Mod /LPF Assessment and Plan Assessmemt and Plan Problems Medical Problems: (1) Acute cholecystitis due to biliary calculus Status: Acute Comment Review of Relevant I have reviewed the following items justine (where applicable) has been applied. Medications: Current Medications Medications (Trade) Dose Ordered Sig/Dalila Route PRN Reason Start Time Stop Time Status Last Admin Dose Admin Iohexol (Omnipaque 240 Mg/ml) 50 ml 1X ONCE PO 06/03/20 10:30 06/03/20 10:31 DC 06/03/20 10:30 Iohexol (Omnipaque 300 Mg/ml) 60 ml 1X ONCE IV 06/03/20 10:30 06/03/20 10:31 DC 06/03/20 11:22 Magnesium Citrate (Citroma) 296 ml 1X ONCE PO 06/03/20 17:00 06/03/20 17:04 DC 06/03/20 17:11 Justifications for Admission Other Justification MARY FLYNN MD Jun 04, 2020 10:05
[2020-06-04] MEDS ORDERED: fentaNYL PF VIAL 100 MCG/2 ML VIAL IVP PRN ×2 (10:15)
[2020-06-04] MEDS ORDERED: PROCHLORPERAZINE 10 MG/2 ML VIAL. IVP PRN (10:15)
[2020-06-04] MEDS ORDERED: MORPHINE SULFATE 2 MG/ML VIAL. IVP PRN (10:15)
[2020-06-04] MEDS ORDERED: HYDROmorphone 2 MG/ML VIAL IVP PRN (10:15)
[2020-06-04] MEDS ORDERED: NEOSTIGMINE 10 MG/10 ML VIAL. ONE (11:01)
[2020-06-04] MEDS ORDERED: fentaNYL PF VIAL 100 MCG/2 ML VIAL ONE ×3 (11:01→14:43)
[2020-06-04] MEDS ORDERED: ROCURONIUM 50 MG/5 ML VIAL. ONE (11:01)
[2020-06-04] MEDS ORDERED: MIDAZOLAM HCL/PF 2 MG/2 ML VIAL. ONE (11:01)
[2020-06-04] MEDS ORDERED: GLYCOPYRROLATE 1 MG/5 ML VIAL. ONE (11:01)
[2020-06-04] MEDS ORDERED: SEVOFLURANE 61 TO 120 MINUTES. IH ONE (11:01)
[2020-06-04] MEDS ORDERED: ONDANSETRON PF 4 MG/2 ML VIAL. ONE (11:02)
[2020-06-04] MEDS ORDERED: LIDOCAINE 2% PF 5 ML VIAL. ONE (11:02)
[2020-06-04] MEDS ORDERED: DEXAMETHASONE SOD PHOS 4 MG/ML VIAL ONE (11:02)
[2020-06-04] MEDS ORDERED: PROPOFOL 10 MG/ML (20ML) VIAL. IV ONE (11:02)
[2020-06-04] MEDS ORDERED: SURGICEL HEMOSTAT 4X8 EACH. ONE (11:32)
[2020-06-04] MEDS ORDERED: BISACODYL 10 MG SUPP.RECT. ONE (11:32)
[2020-06-04] MEDS ORDERED: IOHEXOL 300 MG/ML 50 ML VIAL. ONE (11:32)
[2020-06-04] MEDS ORDERED: BUPIVACAINE-EPI 0.5% 30 ML VIAL KIT. ONE (11:32)
[2020-06-04] MEDS ORDERED: HEPARIN 1,000 UNIT in IV NORMAL SALINE 1,000 ML for SURG PERIOP IRR ONE (11:34)
--- NOTE | 2020-06-04 12:55 | PDOC ---
SURGICAL PROGRESS NOTE DATE: 06/04/20 TIME: 12:52 Subjective Pre-Op Note 60 yo F with calculous cholecystitis. Pain is now resolved. Good bowel function TO OR for laparoscopic versus open cholecystectomy with cholangiogram. R/R/B/A d/w pt. Risks, including, but not limited to: bleeding, infection, damage to surrounding structures, risk of anesthesia, risk of open. She appear to understand, her questions are answered and she elects to proceed. Vital Signs Vital Signs Date Time Temp Pulse Resp B/P (MAP) Pulse Ox O2 Delivery O2 Flow Rate FiO2 06/04/20 12:43 98.0 75 15 123/62 99 Room Air 98.0 I&O Intake and Output 06/04/20 07:00 Intake Total 1200 ml Output Total 900 ml Balance 300 ml Intake IV Total 1200 ml Output Urine Total 900 ml # Voids 1 # Bowel Movements 1 Labs Laboratory Tests Test 06/03/20 06:27 06/03/20 08:28 06/03/20 12:07 White Blood Count 10.7 x10^3/uL (4.0-11.0) Red Blood Count 4.54 x10^6/uL (3.50-5.40) Hemoglobin 13.6 g/dL (12.0-15.5) Hematocrit 41.1 % (36.0-47.0) Mean Corpuscular Volume 91 fL (79-100) Mean Corpuscular Hemoglobin 30 pg (25-35) Mean Corpuscular Hemoglobin Concent 33 g/dL (31-37) Red Cell Distribution Width 13.2 % (11.5-14.5) Platelet Count 222 x10^3/uL (140-400) Neutrophils (%) (Auto) 76 % (31-73) Lymphocytes (%) (Auto) 16 % (24-48) Monocytes (%) (Auto) 6 % (0-9) Eosinophils (%) (Auto) 1 % (0-3) Basophils (%) (Auto) 1 % (0-3) Neutrophils # (Auto) 8.1 x10^3/uL (1.8-7.7) Lymphocytes # (Auto) 1.8 x10^3/uL (1.0-4.8) Monocytes # (Auto) 0.6 x10^3/uL (0.0-1.1) Eosinophils # (Auto) 0.1 x10^3/uL (0.0-0.7) Basophils # (Auto) 0.1 x10^3/uL (0.0-0.2) Sodium Level 142 mmol/L (136-145) Potassium Level 3.9 mmol/L (3.5-5.1) Chloride Level 103 mmol/L (98-107) Carbon Dioxide Level 28 mmol/L (21-32) Anion Gap 11 (6-14) Blood Urea Nitrogen 11 mg/dL (7-20) Creatinine 1.2 mg/dL (0.6-1.0) Estimated GFR (Cockcroft-Gault) 45.5 BUN/Creatinine Ratio 9 (6-20) Glucose Level 102 mg/dL (70-99) Calcium Level 9.3 mg/dL (8.5-10.1) Total Bilirubin 0.5 mg/dL (0.2-1.0) Aspartate Amino Transf (AST/SGOT) 70 U/L (15-37) Alanine Aminotransferase (ALT/SGPT) 69 U/L (14-59) Alkaline Phosphatase 107 U/L (46-116) Troponin I Quantitative < 0.017 ng/mL (0.000-0.055) Total Protein 6.6 g/dL (6.4-8.2) Albumin 3.8 g/dL (3.4-5.0) Albumin/Globulin Ratio 1.4 (1.0-1.7) Lipase 213 U/L (73-393) Coronavirus (PCR) Not detected (Not Detected) SARS-CoV-2 Antigen (Rapid) Negative (NEGATIVE) Urine Collection Type Unknown Urine Color Yellow Urine Clarity Clear Urine pH 6.5 (<5.0-8.0) Urine Specific [place] >=1.030 (1.000-1.030) Urine Protein Negative mg/dL (NEG-TRACE) Urine Glucose (UA) Negative mg/dL (NEG) Urine Ketones (Stick) Negative mg/dL (NEG) Urine Blood Negative (NEG) Urine Nitrite Negative (NEG) Urine Bilirubin Negative (NEG) Urine Urobilinogen Dipstick 1.0 mg/dL (0.2 mg/dL) Urine Leukocyte Esterase Negative (NEG) Urine RBC 1-2 /HPF (0-2) Urine WBC Occ /HPF (0-4) Urine Squamous Epithelial Cells Few /LPF Urine Bacteria 0 /HPF (0-FEW) Urine Hyaline Casts Occasional /HPF Urine Mucus Mod /LPF Problem List Problems Medical Problems: (1) Acute cholecystitis due to biliary calculus Status: Acute Justicifation of Admission Dx: Justifications for Admission: Justification of Admission Dx: Yes Sepsis: Infection ELIZABETH JUSTIN MD Jun 04, 2020 12:55
[2020-06-04] MEDS: IV RINGERS,LACTATED 1000ML 1,000 ML IV SCH ×4 (13:00→21:34)
[2020-06-04] MEDS ORDERED: ePHEDrine PF IN SALINE 50 MG/10 ML SYRINGE. IV ONE (13:05)
[2020-06-04] MEDS ORDERED: PHENYLEPHRINE in 0.9% NACL PF 1 MG/10 ML SYRINGE. IV ONE (13:14)
--- NOTE | 2020-06-04 14:00 | RAD ---
Intraoperative cholangiogram INDICATION: Intraoperative cholangiogram following cholecystectomy for cholecystitis. COMPARISON: Abdomen pelvis CT of 06/03/2020 FINDINGS: 3 intraoperative images were obtained under fluoroscopic guidance with a total of 0.31 minutes of flu oroscopy time used. They show opacification of the extrahepatic biliary tree with no filling defects suspicious for stone . There is good drainage into the duodenum. 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 No zoë dence of a residual or retained common bile duct stone status post cholecystectomy. Discussed with Dr. Kellogg by telephone at 1:53 PM on 06/04/2020 Electronically signed by: Brittany Milligan MD (06/04/2020 1:57 PM) [id number]
[2020-06-04] MEDS ORDERED: PROCHLORPERAZINE 10 MG/2 ML VIAL. ONE (14:43)
--- NOTE | 2020-06-04 15:59 | PDOC4 ---
OPERATIVE NOTE Date: Date: Jun 04, 2020 Pre-Op Diagnosis: Calculous cholecystitis Post-Op Diagnosis: same Procedure Performed: laparoscopic cholecystectomy with cholangiogram Surgeon: Reynaldo Justin Anesthesia Type: GETA plus local Blood Loss: 50 Specimans Obtained: gallbladder Findings: distended, inflamed gallbladder, no obvious umbilical hernia, cholangiogram with small distal choledochal cyst Complications: none Operative Note: After obtaining informed consent, patient was taken to OR, induced under GETA and prepped in the usual fashion. 5 mm port placed umbilical and RUQ, 12 port placed epigastric, all under laparoscopic guidance. Abdominal cavity was explored and noted as above. Gallbladder was distended and aspirated dark bile. Adhesions taken down bluntly. Gallbladder taken off fossa using cautery in dome down fashion. Sulcus of roovier well seen and dissection was above. Cystic artery ligated and divided with clips. Cholangiogram was obtained via cystic duct and was normal except for small distal choledochal cyst. Cystic duct controlled with hemolok and clips. Gallbladder was placed in bag, delivered and sent to pathology. Copious irrigation. No evidence of bleeding or other pathology. Ports removed without bleeding. Fascia repaired with 0 vicryl. Skin repaired with 4 0 monocryl. Dressing placed. Patient tolerated procedure well and sent to PACU in stable condition. All counts correct. Wound class is 3. ELIZABETH JUSTIN MD Jun 04, 2020 15:59
[2020-06-04] MEDS ORDERED: ONDANSETRON PF 4 MG/2 ML VIAL. IVP PRN (16:00)
[2020-06-04] MEDS ORDERED: DEXTROSE 50% 25 GM / 50ML DISP.SYRIN. IV PRN (16:00)
[2020-06-04] MEDS ORDERED: MORPHINE SULFATE 2 MG/ML VIAL. IV PRN (16:00)
[2020-06-04] MEDS ORDERED: IV NORMAL SALINE 1000ML BAG 1,000 ML IV SCH (16:00)
[2020-06-04] MEDS ORDERED: 0.9 % SODIUM CHLORIDE 10 ML DISP.SYRIN. IV PRN (16:00)
[2020-06-04] MEDS ORDERED: NALOXONE 0.4 MG/ML VIAL. IV PRN (16:00)
[2020-06-04] MEDS: DOCUSATE SODIUM 100 MG CAPSULE. PO SCH (19:34)
[2020-06-04] MEDS: HYDROcodone/APAP 5/325MG 1 TAB TABLET PO PRN (19:35)
[2020-06-05] MEDS: IV RINGERS,LACTATED 1000ML 1,000 ML IV SCH (02:00)
[2020-06-05 03:00] VITALS: BP 107/47
[2020-06-05] MEDS: HYDROcodone/APAP 5/325MG 1 TAB TABLET PO PRN ×2 (04:10→10:49)
[2020-06-05] MEDS: PIPERACILLIN/TAZOBACTAM 3.375 GM in IV NORMAL SALINE 50ML 50 ML IV SCH ×2 (05:33→12:12)
[2020-06-05 07:00] VITALS: BP 110/41
--- NOTE | 2020-06-05 08:55 | PDOC ---
SURGICAL PROGRESS NOTE DATE: 06/05/20 TIME: 08:54 Subjective doing well pain managed tolerating diet urinating Vital Signs Vital Signs Date Time Temp Pulse Resp B/P (MAP) Pulse Ox O2 Delivery O2 Flow Rate FiO2 06/05/20 07:00 97.8 68 18 110/41 (64) 90 Room Air 97.8 06/04/20 14:50 10 I&O Intake and Output 06/05/20 07:00 Intake Total 3950 ml Output Total 110 ml Balance 3840 ml Intake Oral 700 ml IV Total 3250 ml Output Urine Total 60 ml Estimated Blood Loss 50 ml # Voids 4 # Bowel Movements 1 General: Alert, Oriented X3, Cooperative Abdomen: Soft, Other (lap dressings dry) Labs Laboratory Tests Test 06/03/20 12:07 Urine Collection Type Unknown Urine Color Yellow Urine Clarity Clear Urine pH 6.5 (<5.0-8.0) Urine Specific [place] >=1.030 (1.000-1.030) Urine Protein Negative mg/dL (NEG-TRACE) Urine Glucose (UA) Negative mg/dL (NEG) Urine Ketones (Stick) Negative mg/dL (NEG) Urine Blood Negative (NEG) Urine Nitrite Negative (NEG) Urine Bilirubin Negative (NEG) Urine Urobilinogen Dipstick 1.0 mg/dL (0.2 mg/dL) Urine Leukocyte Esterase Negative (NEG) Urine RBC 1-2 /HPF (0-2) Urine WBC Occ /HPF (0-4) Urine Squamous Epithelial Cells Few /LPF Urine Bacteria 0 /HPF (0-FEW) Urine Hyaline Casts Occasional /HPF Urine Mucus Mod /LPF Problem List Problems Medical Problems: (1) Acute cholecystitis due to biliary calculus Status: Acute Assessment/Plan s/p osvaldo ok to [facility] home FU 2 weeks Justicifation of Admission Dx: Justifications for Admission: Justification of Admission Dx: Yes Sepsis: Infection [facility] [employer] Jun 05, 2020 08:55
[2020-06-05] MEDS: POLYETHYLENE GLYCOL 3350 17 GM PACKET. PO SCH (08:58)
[2020-06-05] MEDS: DOCUSATE SODIUM 100 MG CAPSULE. PO SCH (08:58)
[2020-06-05] MEDS ORDERED: HYDR-2759 PO (09:00)
[2020-06-05] MEDS ORDERED: DOCU-153 PO (09:00)
[2020-06-05 10:52] VITALS: BP 149/76
[2020-06-05] MEDS ORDERED: LACTOBACILLUS RHAMNOSUS GG 1 CAPSULE. PO SCH (12:30)
--- NOTE | 2020-06-05 12:59 | PDOC3 ---
Discharge Summary Visit Information Date of Admission: Jun 03, 2020 Date of Discharge: Jun 05, 2020 Final Diagnosis Acute abd pain from osvaldo Acute cholecystitis - zosyn given htn, benign, Constipation - large stool burden noted Problems Medical Problems: (1) Acute cholecystitis due to biliary calculus Status: Acute Brief Hospital Course Allergies Allergies Coded Allergies Type Severity Reaction Last Updated Verified No Known Drug Allergies 08/26/19 No Vital Signs Vital Signs Date Time Temp Pulse Resp B/P (MAP) Pulse Ox O2 Delivery O2 Flow Rate FiO2 06/05/20 11:50 20 93 Room Air 06/05/20 10:52 98.0 65 149/76 (100) 98.0 06/04/20 14:50 10 Brief Hospital Course Ms. Barton, is a 60 year old female admit with new abdominal pain, onset of epigastric abdominal pain, right upper quad abdominal pain for hours. Better with pain meds given in the ER. RUQ US confirm cholecystitis with stones. LFT mildly elevated. COVID 19 negative. to OR gen surg, osvaldo, some concerning area that will need CT follow up in 3 months, patient aware Discharge Information Condition at Discharge: Improved Follow Up: Weeks Disposition/Orders: D/C to Home Scheduled Atorvastatin Calcium (Atorvastatin Calcium) 10 Mg Tablet, 10 MG PO HS for FOR CHOLESTEROL, #30 Ref 0 (Reported) Entered as Reported by: JAIME CHAMPAGNE on 06/03/201908 Last Action: New Order on 06/03/201908 by JAIME CHAMPAGNE Bupropion Hcl (Bupropion Hcl Sr) 150 Mg Tablet.er, 300 MG PO DAILY for antidepressant, (Reported) Entered as Reported by: JAIME CHAMPAGNE on 06/03/201908 Last Action: New Order on 06/03/201908 by JAIME CHAMPAGNE Calcium Carbonate/Vitamin D3 (Calcium 500-Vit D3 600 Tablet) 1 Each Tablet, 1 TAB PO DAILY for supplement for 30 Days, #30 Ref 0 (Reported) Entered as Reported by: JAIME CHAMPAGNE on 06/03/201909 Last Action: New Order on 06/03/201909 by JAIME CHAMPAGNE Docusate Sodium (Dok) 100 Mg Capsule, 100 MG PO BID for constipation, #60 Ref 0 Prescribed by: Letty Stephens on 06/05/20 0900 Escitalopram Oxalate (Escitalopram Oxalate) 20 Mg Tablet, 20 MG PO DAILY for ANTI-DEPRESSANT, Ref 0 (Reported) Entered as Reported by: JAIME CHAMPAGNE on 06/03/201908 Last Action: New Order on 06/03/201908 by JAIME CHAMPAGNE Levothyroxine Sodium (Levo-T) 88 Mcg Tablet, 1 TAB PO DAILY for hypothyroid for 30 Days, #30 Ref 0 (Reported) Entered as Reported by: JAIME CHAMPAGNE on 06/03/201908 Last Action: New Order on 06/03/201908 by JAIME CHAMPAGNE Scheduled PRN Hydrocodone/Acetaminophen (Hydrocodone-Acetamin 5-325 mg) 1 Each Tablet, 1 EACH PO PRN Q4HRS PRN for PAIN, #20 Ref 0 Prescribed by: Letty Stephens on 06/05/20 0900 Discontinued Medications Amoxicillin/Potassium Clav (Augmentin 875-125 Tablet) 1 Each Tablet, 1 TAB PO BID for 10 Days, #20 Ref 0 Prescribed by: VICKY BEAN D.O. on 08/26/19101 Hydrocodone/Apap 5-325 ([place] 5-325 Tablet) 1 Each Tablet, 1-2 EACH PO PRN Q6HRS PRN for PAIN, #15 as needed for pain Prescribed by: VICKY BEAN D.O. on 08/26/19101 Patient Instructions Patient Instructions > 30 min coordinating, discussed face to face, meds Justicifation of Admission Dx: Justifications for Admission: Justification of Admission Dx: Yes Sepsis: Infection YADI MAYERS MD Jun 05, 2020 12:59
[2020-06-05 15:00] VITALS: BP 157/76
== END 2020-06-05 15:40 | disposition home or self-care (01) | DRG 418 ==
LOC: ER 05:51 → ED HOLD 09:06 → 5 NORTH 12:00
PROVIDERS: ADMIT Internal Medicine; ATTEND Internal Medicine
PROC: BF101ZZ Fluoroscopy of Bile Ducts using Low Osmolar Contrast (ICD-10-PCS; 2020-06-04)
PROC: 0FT44ZZ Resection of Gallbladder, Percutaneous Endoscopic Approach (ICD-10-PCS; principal; 2020-06-04 13:00)
DX: K80.12 Calculus of gallbladder with acute and chronic cholecystitis without obstruction (principal); Q44.4 Choledochal cyst; E03.9 Hypothyroidism, unspecified; E78.00 Pure hypercholesterolemia, unspecified; I10 Essential (primary) hypertension; K59.00 Constipation, unspecified; Z20.822 Contact with and (suspected) exposure to COVID-19; F32.9 Major depressive disorder, single episode, unspecified
CPT/HCPCS: 36415; 74177; 74300; 76705; 80053; 81001; 83690; 84484; 85025; 87426; 93005; 96374; 96375; 96376; 99285; J1100; J2250; J2270; J2370; J2405; J2543; J2704; J2710; J3010; J3490; J7030; J7120; Q9966; Q9967; U0003; G0378

== ENCOUNTER → 2020-07-30 | Outpatient (CLI) | payer OTHER ==
[~2020-07-30] MED LIST changes: +ATOR10TA60 PO; +BUPR150T27 PO; +CALC-584 PO; +DOCU-153 PO; +ESCITALOPRAM OX20 MG PO; +HYDR-2759 PO; +LEVO88TA51 PO
--- NOTE | 2020-07-30 14:12 | KCIC ---
MRI abdomen cholangiopancreatogram without contrast HISTORY: Choledochal cyst. Recent cholecystectomy May 2020. TECHNIQUE: Noncontrast MR imaging of abdomen with 3-D MIP reconstructions of the bile and pancreatic ducts acquired. COMPARISON: CT abdomen and abdomen ultrasound June 03, 2020. FINDINGS: There is a small susceptibly artifact along the posterior surface of the right hepatic lobe which could represent a small dropped surgical clip or secondarily a small calcification or calculus . Cholecystectomy since prior exam. Common bile duct diameter 7 mm proximal and tapers to a smaller d iameter distally towards the ampulla which is normal after cholecystectomy. No choledocholithiasis or ductal stricture. No choledochal cyst evident. The pancreatic duct diameter is mildly dilated measuring 4-5 mm at the head and tapers to a smaller d iameter towards the tail however there is no ductal stricture or ductal divisum evident. The duct tap ers towards the ampulla. This is best demonstrated on the 3-D acquired MRCP sequence. Liver, pancreas, left kidney, adrenals, spleen and upper GI tract are unremarkable. Tiny subcentimete r right renal upper pole cyst. No abdominal fluid or adenopathy. IMPRESSION: 1. Cholecystectomy. No abnormal biliary ductal dilation, choledocholithiasis or ductal stricture. No choledochal cyst evident. 2. Mild dilation of the pancreatic duct with a diameter 4 to 5 mm at the head and tapering to a small er diameter towards the tail of the pancreas. There is no discrete obstructing calculus, mass or stri cture evident. Mild ductal dilation due to a mild periampullary stricture of the duct is a possibilit y. 3. Small susceptibility artifact along the posterior surface of the lower right hepatic lobe. This co uld represent a dropped surgical clip or chronic calculus versus a focus of dystrophic calcification, presumably new from the presurgical CT abdomen from May 2020. Electronically signed by: Fernando Hernández MD (07/30/2020 2:09 PM) [facility]
== END ==
LOC: KCIC MRI 09:05
PROVIDERS: ATTEND Internal Medicine Gastroenterology
DX: Q44.4 Choledochal cyst (principal); Z90.49 Acquired absence of other specified parts of digestive tract
CPT/HCPCS: 74181